=== PATIENT | male | born 1960 | race Caucasian/White ===

== ENCOUNTER 2023-04-11 13:34 | Inpatient (IN) | payer MEDICARE ==
[2023-04-11] VITALS (32 sets, daily range): BP systolic 121–170; BP diastolic 58–97; TEMP 96.1–101.1; O2SAT 98–100
[~2023-04-11] VITALS: Ht 177.8 cm; Wt 64.7 kg
[2023-04-11 14:03] LABS: BASO # 0.1 10^3/uL (0.0-0.2); EOS # 0.1 10^3/uL (0.0-0.5); EOS % 0.8 % (0.0-3.0); HEMOGLOBIN 13.3 g/dl (13.5-17.5); LYMPH # 2.8 10^3/uL (1.5-5.0); MEAN CORPUSCULAR HEMOGLOBIN 27.1 pg (27.0-33.0); MEAN CORPUSCULAR HGB CONC 31.7 g/dl (32.0-36.5); MEAN CORPUSCULAR VOLUME 85.5 fl (80.0-96.0); MONO # 0.5 10^3/uL (0.0-0.8); MONO % 8.1 % (2.0-8.0); NEUTROPHILS # 2.7 10^3/uL (1.5-8.5); PLATELET COUNT, AUTOMATED 268 10^3/uL (150-450); RED BLOOD COUNT 4.91 10^6/uL (4.30-6.10); WHITE BLOOD COUNT 6.2 10^3/uL (4.0-10.0)
[2023-04-11] MEDS ORDERED: NS 1,000 ML IV ONE (14:05)
[2023-04-11 14:19] LABS: INR 1.11; PROTHROMBIN TIME 14.5 SECONDS (12.5-14.5)
[2023-04-11 14:20] LABS: ABG BASE EXCESS -6.8 (-2.0-2.0); ABG PARTIAL PRESSURE CO2 34.2 mmHg (35.0-45.0); ABG PARTIAL PRESSURE O2 73.6 mmHg (75.0-100.0); ABG STANDARD HCO3 18.9 MMOL/L. (22.0-26.0); ABG TOTAL CO2 19.1 MMOL/L (23.0-31.0); PARTIAL THROMBOPLASTIN TIME 26.9 SECONDS (24.8-34.2)
[2023-04-11 14:24] LABS: ETHYL ALCOHOL (ETHANOL) < 0.003 % (0.000-0.010)
[2023-04-11 14:25] LABS: CK-MB VALUE MASS 19.1 NG/ML (<3.6)
[2023-04-11 14:26] LABS: ACETAMINOPHEN LEVEL < 2.0 UG/ML (10.0-20.0); SALICYLATE LEVEL < 3.0 MG/DL (<30)
[2023-04-11 14:28] LABS: ALBUMIN 3.5 G/DL (3.2-5.2); ALKALINE PHOSPHATASE 106 U/L (46-116); ALT/SGPT 110 U/L (7.0-40); AST/SGOT 92 U/L (<34); BILIRUBIN,DIRECT 0.2 MG/DL (<0.4); BILIRUBIN,TOTAL 0.4 MG/DL (0.3-1.2); BLOOD UREA NITROGEN 34 MG/DL (9-23); CALCIUM LEVEL 8.9 MG/DL (8.3-10.6); CARBON DIOXIDE LEVEL 19 MMOL/L (20-31); CHLORIDE LEVEL 103 MMOL/L (98-107); CPK CREATINE PHOSPHOKINASE 440 U/L (46-171); CREATININE FOR GFR 1.19 MG/DL (0.70-1.30); GLOMERULAR FILTRATION RATE > 60.0 (>49); GLUCOSE, FASTING 205 MG/DL (74-106); MB/CK RELATIVE INDEX 4.34 (< OR =4); POTASSIUM SERUM 4.5 MMOL/L (3.5-5.1); SODIUM LEVEL 139 MMOL/L (136-145)
[2023-04-11 14:29] LABS: THYROID STIMULATING HORMONE 8.936 uIU/ML (0.55-4.78)
[2023-04-11 14:30] LABS: FREE T4 0.84 NG/DL (0.89-1.76)
[2023-04-11] MEDS ORDERED: NS 500 ML IV ONE (14:40)
[2023-04-11 14:48] LABS: RSV AMPLIFICATION NEGATIVE (NEGATIVE)
[2023-04-11] MEDS ORDERED: propofoL 1,000 MG in IV 1 EA IV SCH (14:50)
[2023-04-11 14:59] LABS: LIPASE 31 U/L (12-53)
[2023-04-11 15:01] LABS: AMYLASE 76 U/L (30-118)
[2023-04-11 15:13] LABS: MAGNESIUM LEVEL 1.8 MG/DL (1.8-2.4); PHOSPHORUS LEVEL 7.4 MG/DL (2.4-5.1)
[2023-04-11 15:15] LABS: BARBITURATES URINE NEGATIVE (NEGATIVE); BENZODIAZEPINES URINE NEGATIVE (NEGATIVE); COCAINE METABOLITE URINE NEGATIVE (NEGATIVE); METHADONE URINE NEGATIVE (NEGATIVE); OPIATES URINE NEGATIVE (NEGATIVE); PHENCYCLIDINE URINE NEGATIVE (NEGATIVE)
[2023-04-11] MEDS ORDERED: ISOVUE-370 76% 100ML VIAL As Ordered ONE (15:16)
[2023-04-11 15:18] LABS: D-DIMER QUANT 3446.91 ng/ml (<500)
[2023-04-11 15:21] LABS: AMPHETAMINES LEVEL URINE POSITIVE (NEGATIVE); CANNABINOIDS URINE POSITIVE (NEGATIVE)
[2023-04-11] MEDS ORDERED: ACETAMINOPHEN 650MG SUPP PR PRN (15:30)
[2023-04-11] MEDS ORDERED: LACRILUBE (AKWA TEARS) OPHTH OINT 3.5GM OU PRN (15:30)
[2023-04-11] MEDS ORDERED: NS 250 ML IV ONE (15:50)
[2023-04-11] MEDS ORDERED: ACETAMINOPHEN 650MG SUPP PR ONE (16:00)
[2023-04-11] MEDS ORDERED: MED REC IN PROGRESS XX SCH (16:20)
[2023-04-11] MEDS ORDERED: MED REC CURRENTLY UNOBTAINABLE XX SCH (16:30)
[2023-04-11 16:42] LABS: ABG BASE EXCESS -3.4 (-2.0-2.0); ABG O2 SATURATION 98.8 % (95.0-99.0); ABG PARTIAL PRESSURE CO2 36.4 mmHg (35.0-45.0); ABG PARTIAL PRESSURE O2 144.9 mmHg (75.0-100.0); ABG STANDARD HCO3 21.7 MMOL/L. (22.0-26.0); ABG TOTAL CO2 22.2 MMOL/L (23.0-31.0)
[2023-04-11] MEDS ORDERED: CISATRACURIUM 10MG/ML 20 ML VIAL IV ONE (16:45)
[2023-04-11 16:54] LABS: BASO % 0.3 % (0.0-1.0); EOS % 0.2 % (0.0-3.0); HEMATOCRIT 43.2 % (42.0-52.0); HEMOGLOBIN 14.7 g/dl (13.5-17.5); LYMPH % 9.2 % (24.0-44.0); MEAN CORPUSCULAR HEMOGLOBIN 28.1 pg (27.0-33.0); MEAN CORPUSCULAR VOLUME 82.6 fl (80.0-96.0); MONO # 0.9 10^3/uL (0.0-0.8); MONO % 8.5 % (2.0-8.0); NEUTROPHILS # 8.9 10^3/uL (1.5-8.5); PLATELET COUNT, AUTOMATED 249 10^3/uL (150-450); RED BLOOD COUNT 5.23 10^6/uL (4.30-6.10)
[2023-04-11] MEDS: IPRATROPIUM 0.5MG/ALBUTEROL 2.5MG INH SOL UD 3ML (DUONEB) NEB SCH ×2 (16:54→19:21)
[2023-04-11 17:13] LABS: INR 1.07; PARTIAL THROMBOPLASTIN TIME 26.3 SECONDS (24.8-34.2); PROTHROMBIN TIME 14.1 SECONDS (12.5-14.5)
[2023-04-11 17:20] LABS: LIPASE 26 U/L (12-53)
[2023-04-11 17:21] LABS: AMYLASE 171 U/L (30-118)
[2023-04-11 17:27] LABS: ALBUMIN 4.1 G/DL (3.2-5.2); ALKALINE PHOSPHATASE 119 U/L (46-116); ALT/SGPT 133 U/L (7.0-40); AST/SGOT 123 U/L (<34); BILIRUBIN,TOTAL 0.6 MG/DL (0.3-1.2); BLOOD UREA NITROGEN 35 MG/DL (9-23); CALCIUM LEVEL 8.9 MG/DL (8.3-10.6); CARBON DIOXIDE LEVEL 26 MMOL/L (20-31); CHLORIDE LEVEL 104 MMOL/L (98-107); CPK CREATINE PHOSPHOKINASE 878 U/L (46-171); CREATININE FOR GFR 1.15 MG/DL (0.70-1.30); GLOMERULAR FILTRATION RATE > 60.0 (>49); GLUCOSE, FASTING 77 MG/DL (74-106); MAGNESIUM LEVEL 1.7 MG/DL (1.8-2.4); MB/CK RELATIVE INDEX 2.84 (< OR =4); POTASSIUM SERUM 4.5 MMOL/L (3.5-5.1); SODIUM LEVEL 138 MMOL/L (136-145)
[2023-04-11 17:34] LABS: D-DIMER QUANT > 4000 ng/ml (<500)
[2023-04-11] MEDS ORDERED: MAG SULF 1GM/100ML (MAG RUN) 1 GM in IV 1 EA IV ONE (17:40)
[2023-04-11] MEDS: CISATRACURIUM 200 MG in NS 480 ML IV SCH (18:02)
[2023-04-11] MEDS: LACRILUBE (AKWA TEARS) OPHTH OINT 3.5GM OU SCH ×2 (18:43→21:37)
[2023-04-11] MEDS: propofoL 1,000 MG in IV 1 EA IV SCH (19:31)
[2023-04-11 20:05] LABS: HEMOGLOBIN 13.1 g/dl (13.5-17.5); MEAN CORPUSCULAR HEMOGLOBIN 27.8 pg (27.0-33.0); MEAN CORPUSCULAR HGB CONC 33.6 g/dl (32.0-36.5); MEAN CORPUSCULAR VOLUME 82.8 fl (80.0-96.0); PLATELET COUNT, AUTOMATED 218 10^3/uL (150-450); RED BLOOD COUNT 4.71 10^6/uL (4.30-6.10); WHITE BLOOD COUNT 10.5 10^3/uL (4.0-10.0)
[2023-04-11 20:18] LABS: INR 1.08; PROTHROMBIN TIME 14.2 SECONDS (12.5-14.5)
[2023-04-11 20:22] LABS: ABG BASE EXCESS -2.7 (-2.0-2.0); ABG HCO3 21.6 MMOL/L (22.0-26.0); ABG O2 SATURATION 98.7 % (95.0-99.0); ABG PARTIAL PRESSURE CO2 36.1 mmHg (35.0-45.0); ABG PARTIAL PRESSURE O2 129.8 mmHg (75.0-100.0); ABG STANDARD HCO3 22.2 MMOL/L. (22.0-26.0); ABG TOTAL CO2 22.7 MMOL/L (23.0-31.0); ABG pH (ARTERIAL) 7.394 UNITS (7.350-7.450)
[2023-04-11] MEDS: CHLORHEXIDINE GLUCONATE 0.12 % 15ML UDC (PERIDEX ORAL RINSE) MT SCH (21:29)
[2023-04-11 21:37] LABS: ALBUMIN 3.5 G/DL (3.2-5.2); ALKALINE PHOSPHATASE 96 U/L (46-116); ALT/SGPT 105 U/L (7.0-40); AST/SGOT 100 U/L (<34); BILIRUBIN,TOTAL 0.5 MG/DL (0.3-1.2); BLOOD UREA NITROGEN 34 MG/DL (9-23); CALCIUM LEVEL 8.2 MG/DL (8.3-10.6); CARBON DIOXIDE LEVEL 24 MMOL/L (20-31); CHLORIDE LEVEL 105 MMOL/L (98-107); GLOMERULAR FILTRATION RATE > 60.0 (>49); GLUCOSE, FASTING 99 MG/DL (74-106); PHOSPHORUS LEVEL 3.4 MG/DL (2.4-5.1); POTASSIUM SERUM 3.6 MMOL/L (3.5-5.1); SODIUM LEVEL 139 MMOL/L (136-145); TOTAL PROTEIN 6.7 G/DL (5.7-8.2)
[2023-04-12] VITALS (31 sets, daily range): BP systolic 109–178; BP diastolic 72–99; TEMP 96.6–98.4; O2SAT 91–100
[2023-04-12 00:02] LABS: ABG BASE EXCESS 1.5 (-2.0-2.0); ABG HCO3 24.7 MMOL/L (22.0-26.0); ABG O2 SATURATION 98.6 % (95.0-99.0); ABG PARTIAL PRESSURE O2 115.8 mmHg (75.0-100.0); ABG STANDARD HCO3 25.8 MMOL/L. (22.0-26.0); ABG TOTAL CO2 25.8 MMOL/L (23.0-31.0); ABG pH (ARTERIAL) 7.467 UNITS (7.350-7.450)
[2023-04-12 00:10] LABS: INR 1.08; PARTIAL THROMBOPLASTIN TIME 29.8 SECONDS (24.8-34.2); PROTHROMBIN TIME 14.2 SECONDS (12.5-14.5)
[2023-04-12 00:32] LABS: HEMOGLOBIN 13.6 g/dl (13.5-17.5); MEAN CORPUSCULAR HEMOGLOBIN 27.8 pg (27.0-33.0); MEAN CORPUSCULAR VOLUME 81.6 fl (80.0-96.0); PLATELET COUNT, AUTOMATED 206 10^3/uL (150-450); WHITE BLOOD COUNT 9.7 10^3/uL (4.0-10.0)
[2023-04-12] MEDS: propofoL 1,000 MG in IV 1 EA IV SCH ×4 (00:33→22:50)
[2023-04-12 00:56] LABS: ALKALINE PHOSPHATASE 96 U/L (46-116); ALT/SGPT 100 U/L (7.0-40); AST/SGOT 87 U/L (<34); BLOOD UREA NITROGEN 30 MG/DL (9-23); CALCIUM LEVEL 8.1 MG/DL (8.3-10.6); CARBON DIOXIDE LEVEL 25 MMOL/L (20-31); CHLORIDE LEVEL 104 MMOL/L (98-107); CREATININE FOR GFR 0.93 MG/DL (0.70-1.30); GLOMERULAR FILTRATION RATE > 60.0 (>49); GLUCOSE, FASTING 100 MG/DL (74-106); PHOSPHORUS LEVEL 4.5 MG/DL (2.4-5.1); POTASSIUM SERUM 3.4 MMOL/L (3.5-5.1); SODIUM LEVEL 140 MMOL/L (136-145)
[2023-04-12 00:57] LABS: ALBUMIN 3.4 G/DL (3.2-5.2); BILIRUBIN,TOTAL 0.5 MG/DL (0.3-1.2); MAGNESIUM LEVEL 1.9 MG/DL (1.8-2.4); TOTAL PROTEIN 6.8 G/DL (5.7-8.2)
[2023-04-12 04:08] LABS: ABG BASE EXCESS 6.7 (-2.0-2.0); ABG HCO3 29.9 MMOL/L (22.0-26.0); ABG O2 SATURATION 91.6 % (95.0-99.0); ABG PARTIAL PRESSURE CO2 37.5 mmHg (35.0-45.0); ABG PARTIAL PRESSURE O2 55.5 mmHg (75.0-100.0); ABG STANDARD HCO3 30.4 MMOL/L. (22.0-26.0); ABG pH (ARTERIAL) 7.519 UNITS (7.350-7.450)
[2023-04-12 04:24] LABS: HEMATOCRIT 42.9 % (42.0-52.0); HEMOGLOBIN 14.4 g/dl (13.5-17.5); MEAN CORPUSCULAR HEMOGLOBIN 27.2 pg (27.0-33.0); MEAN CORPUSCULAR HGB CONC 33.6 g/dl (32.0-36.5); MEAN CORPUSCULAR VOLUME 81.1 fl (80.0-96.0); PLATELET COUNT, AUTOMATED 223 10^3/uL (150-450); RED BLOOD COUNT 5.29 10^6/uL (4.30-6.10); WHITE BLOOD COUNT 7.9 10^3/uL (4.0-10.0)
[2023-04-12 04:40] LABS: INR 1.04; PARTIAL THROMBOPLASTIN TIME 30.3 SECONDS (24.8-34.2); PROTHROMBIN TIME 13.8 SECONDS (12.5-14.5)
[2023-04-12 04:46] LABS: ALBUMIN 3.5 G/DL (3.2-5.2); ALKALINE PHOSPHATASE 100 U/L (46-116); ALT/SGPT 99 U/L (7.0-40); AST/SGOT 77 U/L (<34); BILIRUBIN,TOTAL 0.6 MG/DL (0.3-1.2); BLOOD UREA NITROGEN 30 MG/DL (9-23); CALCIUM LEVEL 8.8 MG/DL (8.3-10.6); CARBON DIOXIDE LEVEL 30 MMOL/L (20-31); CHLORIDE LEVEL 101 MMOL/L (98-107); CREATININE FOR GFR 0.94 MG/DL (0.70-1.30); GLOMERULAR FILTRATION RATE > 60.0 (>49); GLUCOSE, FASTING 97 MG/DL (74-106); PHOSPHORUS LEVEL 4.2 MG/DL (2.4-5.1); POTASSIUM SERUM 3.2 MMOL/L (3.5-5.1); SODIUM LEVEL 140 MMOL/L (136-145)
[2023-04-12] MEDS: CISATRACURIUM 200 MG in NS 480 ML IV SCH ×2 (05:10→17:36)
[2023-04-12] MEDS: KCL 20MEQ IN 100ML SWI (KRUN) 20 MEQ in IV 1 EA IV SCH ×8 (05:18→15:24)
[2023-04-12 06:01] LABS: ABG BASE EXCESS 7.4 (-2.0-2.0); ABG HCO3 31.8 MMOL/L (22.0-26.0); ABG O2 SATURATION 96.6 % (95.0-99.0); ABG PARTIAL PRESSURE CO2 43.5 mmHg (35.0-45.0); ABG PARTIAL PRESSURE O2 86.4 mmHg (75.0-100.0); ABG STANDARD HCO3 31.2 MMOL/L. (22.0-26.0); ABG TOTAL CO2 33.2 MMOL/L (23.0-31.0); ABG pH (ARTERIAL) 7.482 UNITS (7.350-7.450)
[2023-04-12 08:15] LABS: HEMATOCRIT 43.1 % (42.0-52.0); HEMOGLOBIN 14.6 g/dl (13.5-17.5); MEAN CORPUSCULAR HEMOGLOBIN 27.7 pg (27.0-33.0); MEAN CORPUSCULAR HGB CONC 33.9 g/dl (32.0-36.5); MEAN CORPUSCULAR VOLUME 81.6 fl (80.0-96.0); PLATELET COUNT, AUTOMATED 249 10^3/uL (150-450); RED BLOOD COUNT 5.28 10^6/uL (4.30-6.10); WHITE BLOOD COUNT 9.2 10^3/uL (4.0-10.0)
[2023-04-12] MEDS: IPRATROPIUM 0.5MG/ALBUTEROL 2.5MG INH SOL UD 3ML (DUONEB) NEB SCH ×4 (08:15→19:38)
[2023-04-12] MEDS ORDERED: LR 1,000 ML IV ONE ×2 (08:30→12:50)
[2023-04-12 08:35] LABS: ALBUMIN 3.7 G/DL (3.2-5.2); ALKALINE PHOSPHATASE 95 U/L (46-116); ALT/SGPT 87 U/L (7.0-40); AST/SGOT 63 U/L (<34); BILIRUBIN,TOTAL 0.6 MG/DL (0.3-1.2); BLOOD UREA NITROGEN 26 MG/DL (9-23); CALCIUM LEVEL 8.5 MG/DL (8.3-10.6); CARBON DIOXIDE LEVEL 35 MMOL/L (20-31); CHLORIDE LEVEL 100 MMOL/L (98-107); CREATININE FOR GFR 0.86 MG/DL (0.70-1.30); GLOMERULAR FILTRATION RATE > 60.0 (>49); GLUCOSE, FASTING 88 MG/DL (74-106); PHOSPHORUS LEVEL 4.4 MG/DL (2.4-5.1); POTASSIUM SERUM 3.6 MMOL/L (3.5-5.1); SODIUM LEVEL 139 MMOL/L (136-145); TOTAL PROTEIN 7.2 G/DL (5.7-8.2)
[2023-04-12 09:02] LABS: INR 1.05; PROTHROMBIN TIME 13.9 SECONDS (12.5-14.5)
[2023-04-12 09:03] LABS: PARTIAL THROMBOPLASTIN TIME 28.4 SECONDS (24.8-34.2)
[2023-04-12 09:10] LABS: ABG BASE EXCESS 8.4 (-2.0-2.0); ABG HCO3 34.9 MMOL/L (22.0-26.0); ABG O2 SATURATION 93.8 % (95.0-99.0); ABG PARTIAL PRESSURE CO2 55.1 mmHg (35.0-45.0); ABG PARTIAL PRESSURE O2 69.1 mmHg (75.0-100.0); ABG STANDARD HCO3 32.1 MMOL/L. (22.0-26.0); ABG TOTAL CO2 36.6 MMOL/L (23.0-31.0)
[2023-04-12] MEDS: CHLORHEXIDINE GLUCONATE 0.12 % 15ML UDC (PERIDEX ORAL RINSE) MT SCH ×2 (09:17→20:33)
[2023-04-12] MEDS: ENOXAPARIN 40MG/0.4ML SYRINGE (J1650 PER 10MG) SC SCH (09:18)
[2023-04-12] MEDS: PANTOPRAZOLE 40MG VIAL IV SCH (09:18)
[2023-04-12] MEDS: LACRILUBE (AKWA TEARS) OPHTH OINT 3.5GM OU SCH ×3 (09:18→20:33)
[2023-04-12] MEDS: LR 1,000 ML IV SCH ×2 (11:47→14:48)
[2023-04-12] MEDS: fentaNYL 100 MCG/2 ML INJECTION IV PRN (11:47)
[2023-04-12 12:01] LABS: ABG BASE EXCESS 6.9 (-2.0-2.0); ABG HCO3 33.4 MMOL/L (22.0-26.0); ABG O2 SATURATION 94.4 % (95.0-99.0); ABG PARTIAL PRESSURE CO2 55.1 mmHg (35.0-45.0); ABG PARTIAL PRESSURE O2 72.7 mmHg (75.0-100.0); ABG STANDARD HCO3 30.7 MMOL/L. (22.0-26.0); ABG TOTAL CO2 35.1 MMOL/L (23.0-31.0); ABG pH (ARTERIAL) 7.401 UNITS (7.350-7.450)
[2023-04-12 12:19] LABS: HEMATOCRIT 39.9 % (42.0-52.0); HEMOGLOBIN 13.4 g/dl (13.5-17.5); MEAN CORPUSCULAR HEMOGLOBIN 27.7 pg (27.0-33.0); MEAN CORPUSCULAR HGB CONC 33.6 g/dl (32.0-36.5); MEAN CORPUSCULAR VOLUME 82.6 fl (80.0-96.0); PLATELET COUNT, AUTOMATED 215 10^3/uL (150-450); RED BLOOD COUNT 4.83 10^6/uL (4.30-6.10); WHITE BLOOD COUNT 9.8 10^3/uL (4.0-10.0)
[2023-04-12 12:32] LABS: INR 1.09; PROTHROMBIN TIME 14.3 SECONDS (12.5-14.5)
[2023-04-12 12:33] LABS: PARTIAL THROMBOPLASTIN TIME 32.8 SECONDS (24.8-34.2)
[2023-04-12 12:58] LABS: ALBUMIN 3.2 G/DL (3.2-5.2); ALKALINE PHOSPHATASE 87 U/L (46-116); ALT/SGPT 74 U/L (7.0-40); AST/SGOT 50 U/L (<34); BILIRUBIN,TOTAL 0.5 MG/DL (0.3-1.2); BLOOD UREA NITROGEN 24 MG/DL (9-23); CARBON DIOXIDE LEVEL 34 MMOL/L (20-31); CHLORIDE LEVEL 102 MMOL/L (98-107); CREATININE FOR GFR 0.84 MG/DL (0.70-1.30); GLOMERULAR FILTRATION RATE > 60.0 (>49); GLUCOSE, FASTING 109 MG/DL (74-106); MAGNESIUM LEVEL 1.8 MG/DL (1.8-2.4); PHOSPHORUS LEVEL 3.9 MG/DL (2.4-5.1); POTASSIUM SERUM 3.2 MMOL/L (3.5-5.1); SODIUM LEVEL 140 MMOL/L (136-145); TOTAL PROTEIN 6.4 G/DL (5.7-8.2)
[2023-04-12 15:37] LABS: HEMATOCRIT 41.4 % (42.0-52.0); HEMOGLOBIN 13.6 g/dl (13.5-17.5); MEAN CORPUSCULAR HEMOGLOBIN 27.9 pg (27.0-33.0); MEAN CORPUSCULAR HGB CONC 32.9 g/dl (32.0-36.5); MEAN CORPUSCULAR VOLUME 84.8 fl (80.0-96.0); RED BLOOD COUNT 4.88 10^6/uL (4.30-6.10); WHITE BLOOD COUNT 7.9 10^3/uL (4.0-10.0)
[2023-04-12 15:56] LABS: ABG BASE EXCESS 6.9 (-2.0-2.0); ABG HCO3 32.9 MMOL/L (22.0-26.0); ABG PARTIAL PRESSURE CO2 52.1 mmHg (35.0-45.0); ABG PARTIAL PRESSURE O2 74.6 mmHg (75.0-100.0); ABG STANDARD HCO3 30.7 MMOL/L. (22.0-26.0); ABG TOTAL CO2 34.5 MMOL/L (23.0-31.0); ABG pH (ARTERIAL) 7.418 UNITS (7.350-7.450)
[2023-04-12 16:12] LABS: ALBUMIN 3.1 G/DL (3.2-5.2); ALKALINE PHOSPHATASE 92 U/L (46-116); ALT/SGPT 77 U/L (7.0-40); AST/SGOT 47 U/L (<34); BILIRUBIN,TOTAL 0.5 MG/DL (0.3-1.2); BLOOD UREA NITROGEN 27 MG/DL (9-23); CALCIUM LEVEL 8.3 MG/DL (8.3-10.6); CARBON DIOXIDE LEVEL 34 MMOL/L (20-31); CHLORIDE LEVEL 102 MMOL/L (98-107); CREATININE FOR GFR 0.88 MG/DL (0.70-1.30); GLOMERULAR FILTRATION RATE > 60.0 (>49); GLUCOSE, FASTING 93 MG/DL (74-106); INR 1.1; MAGNESIUM LEVEL 1.8 MG/DL (1.8-2.4); PHOSPHORUS LEVEL 4.1 MG/DL (2.4-5.1); POTASSIUM SERUM 3.7 MMOL/L (3.5-5.1); PROTHROMBIN TIME 14.4 SECONDS (12.5-14.5); SODIUM LEVEL 142 MMOL/L (136-145); TOTAL PROTEIN 6.3 G/DL (5.7-8.2)
[2023-04-12 16:13] LABS: PARTIAL THROMBOPLASTIN TIME 32.3 SECONDS (24.8-34.2)
[2023-04-12] MEDS ORDERED: hydrALAZINE 20MG/ML 1ML VIAL IV PRN (18:10)
[2023-04-12 20:01] LABS: HEMOGLOBIN 13.8 g/dl (13.5-17.5); MEAN CORPUSCULAR HEMOGLOBIN 27.7 pg (27.0-33.0); MEAN CORPUSCULAR HGB CONC 33.7 g/dl (32.0-36.5); MEAN CORPUSCULAR VOLUME 82.2 fl (80.0-96.0); PLATELET COUNT, AUTOMATED 202 10^3/uL (150-450); RED BLOOD COUNT 4.99 10^6/uL (4.30-6.10); WHITE BLOOD COUNT 10.8 10^3/uL (4.0-10.0)
[2023-04-12 20:16] LABS: ABG BASE EXCESS 4.2 (-2.0-2.0); ABG HCO3 27.7 MMOL/L (22.0-26.0); ABG O2 SATURATION 96.1 % (95.0-99.0); ABG PARTIAL PRESSURE CO2 37.5 mmHg (35.0-45.0); ABG PARTIAL PRESSURE O2 77.6 mmHg (75.0-100.0); ABG STANDARD HCO3 28.2 MMOL/L. (22.0-26.0); ABG TOTAL CO2 28.8 MMOL/L (23.0-31.0); ABG pH (ARTERIAL) 7.486 UNITS (7.350-7.450)
[2023-04-12 20:17] LABS: INR 1.07; PROTHROMBIN TIME 14.1 SECONDS (12.5-14.5)
[2023-04-12 20:18] LABS: PARTIAL THROMBOPLASTIN TIME 31.5 SECONDS (24.8-34.2)
[2023-04-12 22:08] LABS: ALKALINE PHOSPHATASE 93 U/L (46-116); ALT/SGPT 71 U/L (7.0-40); AST/SGOT 44 U/L (<34); BILIRUBIN,TOTAL 0.5 MG/DL (0.3-1.2); BLOOD UREA NITROGEN 22 MG/DL (9-23); CALCIUM LEVEL 8.1 MG/DL (8.3-10.6); CARBON DIOXIDE LEVEL 30 MMOL/L (20-31); CHLORIDE LEVEL 102 MMOL/L (98-107); CREATININE FOR GFR 0.78 MG/DL (0.70-1.30); GLOMERULAR FILTRATION RATE > 60.0 (>49); GLUCOSE, FASTING 124 MG/DL (74-106); MAGNESIUM LEVEL 1.6 MG/DL (1.8-2.4); PHOSPHORUS LEVEL 2.6 MG/DL (2.4-5.1); POTASSIUM SERUM 3.9 MMOL/L (3.5-5.1); SODIUM LEVEL 139 MMOL/L (136-145); TOTAL PROTEIN 6.1 G/DL (5.7-8.2)
[2023-04-12 22:28] LABS: ALBUMIN 2.8 G/DL (3.2-5.2); ALKALINE PHOSPHATASE 89 U/L (46-116); ALT/SGPT 67 U/L (7.0-40); AST/SGOT 37 U/L (<34); BILIRUBIN,TOTAL 0.5 MG/DL (0.3-1.2); BLOOD UREA NITROGEN 22 MG/DL (9-23); CALCIUM LEVEL 8.3 MG/DL (8.3-10.6); CARBON DIOXIDE LEVEL 29 MMOL/L (20-31); CHLORIDE LEVEL 101 MMOL/L (98-107); CREATININE FOR GFR 0.75 MG/DL (0.70-1.30); GLOMERULAR FILTRATION RATE > 60.0 (>49); GLUCOSE, FASTING 133 MG/DL (74-106); POTASSIUM SERUM 3.7 MMOL/L (3.5-5.1); SODIUM LEVEL 137 MMOL/L (136-145); TOTAL PROTEIN 5.9 G/DL (5.7-8.2)
[2023-04-12] MEDS: MIDAZOLAM INJ 2MG/2ML VIAL IV PRN (22:49)
[2023-04-13] VITALS (29 sets, daily range): BP systolic 98–147; BP diastolic 62–91; TEMP 98.1–101.5; O2SAT 92–100
[2023-04-13] MEDS: fentaNYL 100 MCG/2 ML INJECTION IV PRN (00:08)
[2023-04-13] MEDS: LR 1,000 ML IV SCH ×3 (00:15→05:42)
[2023-04-13 00:32] LABS: ALBUMIN 2.7 G/DL (3.2-5.2); ALKALINE PHOSPHATASE 87 U/L (46-116); ALT/SGPT 64 U/L (7.0-40); AST/SGOT 35 U/L (<34); BILIRUBIN,TOTAL 0.5 MG/DL (0.3-1.2); BLOOD UREA NITROGEN 22 MG/DL (9-23); CALCIUM LEVEL 8.3 MG/DL (8.3-10.6); CARBON DIOXIDE LEVEL 30 MMOL/L (20-31); CHLORIDE LEVEL 101 MMOL/L (98-107); CREATININE FOR GFR 0.76 MG/DL (0.70-1.30); GLOMERULAR FILTRATION RATE > 60.0 (>49); GLUCOSE, FASTING 114 MG/DL (74-106); MAGNESIUM LEVEL 1.5 MG/DL (1.8-2.4); PHOSPHORUS LEVEL 2.9 MG/DL (2.4-5.1); POTASSIUM SERUM 4.4 MMOL/L (3.5-5.1); SODIUM LEVEL 136 MMOL/L (136-145); TOTAL PROTEIN 5.8 G/DL (5.7-8.2)
[2023-04-13 00:43] LABS: HEMATOCRIT 39.9 % (42.0-52.0); HEMOGLOBIN 13.3 g/dl (13.5-17.5); MEAN CORPUSCULAR HEMOGLOBIN 27.7 pg (27.0-33.0); MEAN CORPUSCULAR HGB CONC 33.3 g/dl (32.0-36.5); PLATELET COUNT, AUTOMATED 193 10^3/uL (150-450); RED BLOOD COUNT 4.81 10^6/uL (4.30-6.10); WHITE BLOOD COUNT 14.3 10^3/uL (4.0-10.0)
[2023-04-13 03:48] LABS: HEMATOCRIT 38.6 % (42.0-52.0); HEMOGLOBIN 12.9 g/dl (13.5-17.5); MEAN CORPUSCULAR HEMOGLOBIN 27.5 pg (27.0-33.0); MEAN CORPUSCULAR HGB CONC 33.4 g/dl (32.0-36.5); MEAN CORPUSCULAR VOLUME 82.3 fl (80.0-96.0); PLATELET COUNT, AUTOMATED 217 10^3/uL (150-450); RED BLOOD COUNT 4.69 10^6/uL (4.30-6.10); WHITE BLOOD COUNT 14.9 10^3/uL (4.0-10.0)
[2023-04-13] MEDS: propofoL 1,000 MG in IV 1 EA IV SCH ×6 (04:05→22:15)
[2023-04-13] MEDS: MIDAZOLAM INJ 2MG/2ML VIAL IV PRN ×7 (04:11→21:40)
[2023-04-13 04:16] LABS: ALBUMIN 2.7 G/DL (3.2-5.2); ALKALINE PHOSPHATASE 88 U/L (46-116); ALT/SGPT 60 U/L (7.0-40); AST/SGOT 38 U/L (<34); BILIRUBIN,TOTAL 0.5 MG/DL (0.3-1.2); BLOOD UREA NITROGEN 20 MG/DL (9-23); CALCIUM LEVEL 7.9 MG/DL (8.3-10.6); CARBON DIOXIDE LEVEL 30 MMOL/L (20-31); CHLORIDE LEVEL 101 MMOL/L (98-107); CREATININE FOR GFR 0.72 MG/DL (0.70-1.30); GLOMERULAR FILTRATION RATE > 60.0 (>49); GLUCOSE, FASTING 94 MG/DL (74-106); MAGNESIUM LEVEL 1.4 MG/DL (1.8-2.4); PHOSPHORUS LEVEL 2.4 MG/DL (2.4-5.1); SODIUM LEVEL 138 MMOL/L (136-145); TOTAL PROTEIN 5.8 G/DL (5.7-8.2)
[2023-04-13 05:28] LABS: ABG BASE EXCESS 3.9 (-2.0-2.0); ABG HCO3 28.6 MMOL/L (22.0-26.0); ABG O2 SATURATION 96.2 % (95.0-99.0); ABG PARTIAL PRESSURE CO2 43.1 mmHg (35.0-45.0); ABG PARTIAL PRESSURE O2 81.5 mmHg (75.0-100.0); ABG STANDARD HCO3 27.9 MMOL/L. (22.0-26.0); ABG TOTAL CO2 29.9 MMOL/L (23.0-31.0); ABG pH (ARTERIAL) 7.439 UNITS (7.350-7.450)
[2023-04-13] MEDS: D5W/LR 1,000 ML IV SCH ×4 (05:53→22:15)
[2023-04-13] MEDS: MAG SULF 1GM/100ML (MAG RUN) 1 GM in IV 1 EA IV SCH ×3 (05:53→08:22)
[2023-04-13] MEDS: INSULIN LISPRO (NovoLOG) PER UNIT SC SCH ×4 (06:00→18:00)
[2023-04-13] MEDS: IPRATROPIUM 0.5MG/ALBUTEROL 2.5MG INH SOL UD 3ML (DUONEB) NEB SCH ×4 (07:34→20:04)
[2023-04-13] MEDS: CHLORHEXIDINE GLUCONATE 0.12 % 15ML UDC (PERIDEX ORAL RINSE) MT SCH ×2 (08:23→20:20)
[2023-04-13] MEDS: LACRILUBE (AKWA TEARS) OPHTH OINT 3.5GM OU SCH ×3 (08:23→20:20)
[2023-04-13] MEDS: PANTOPRAZOLE 40MG VIAL IV SCH (08:23)
[2023-04-13] MEDS: ENOXAPARIN 40MG/0.4ML SYRINGE (J1650 PER 10MG) SC SCH (08:23)
[2023-04-13 08:54] LABS: HEMATOCRIT 36.1 % (42.0-52.0); HEMOGLOBIN 12.1 g/dl (13.5-17.5); MEAN CORPUSCULAR HEMOGLOBIN 27.6 pg (27.0-33.0); MEAN CORPUSCULAR HGB CONC 33.5 g/dl (32.0-36.5); MEAN CORPUSCULAR VOLUME 82.2 fl (80.0-96.0); PLATELET COUNT, AUTOMATED 183 10^3/uL (150-450); RED BLOOD COUNT 4.39 10^6/uL (4.30-6.10)
[2023-04-13 09:11] LABS: ALBUMIN 2.6 G/DL (3.2-5.2); ALKALINE PHOSPHATASE 81 U/L (46-116); ALT/SGPT 49 U/L (7.0-40); AST/SGOT 42 U/L (<34); BILIRUBIN,TOTAL 0.4 MG/DL (0.3-1.2); BLOOD UREA NITROGEN 15 MG/DL (9-23); CALCIUM LEVEL 7.8 MG/DL (8.3-10.6); CARBON DIOXIDE LEVEL 31 MMOL/L (20-31); CHLORIDE LEVEL 100 MMOL/L (98-107); CREATININE FOR GFR 0.69 MG/DL (0.70-1.30); GLOMERULAR FILTRATION RATE > 60.0 (>49); GLUCOSE, FASTING 135 MG/DL (74-106); MAGNESIUM LEVEL 1.9 MG/DL (1.8-2.4); PHOSPHORUS LEVEL 1.9 MG/DL (2.4-5.1); POTASSIUM SERUM 3.4 MMOL/L (3.5-5.1); SODIUM LEVEL 136 MMOL/L (136-145); TOTAL PROTEIN 5.6 G/DL (5.7-8.2)
[2023-04-13] MEDS ORDERED: MED REC CURRENTLY UNOBTAINABLE XX SCH (11:20)
[2023-04-13] MEDS ORDERED: KCL 20MEQ IN 100ML SWI (KRUN) 20 MEQ in IV 1 EA IV ONE ×2 (14:00)
[2023-04-13] MEDS ORDERED: LR 1,000 ML IV ONE (14:05)
[2023-04-13] MEDS ORDERED: POTASSIUM PHOSPHATE INJ 30 MMOL in D5W 500 ML IV ONE (15:00)
[2023-04-13] MEDS ORDERED: ACETAMINOPHEN *IV* 1,000 MG in IV 1 EA IV ONE (22:20)
[2023-04-14] VITALS (33 sets, daily range): BP systolic 95–145; BP diastolic 52–90; TEMP 98.7–101.7; O2SAT 94–100
[2023-04-14] MEDS: propofoL 1,000 MG in IV 1 EA IV SCH ×5 (01:43→20:59)
[2023-04-14] MEDS ORDERED: ASPIRIN 300 MG SUPP PR ONE (03:15)
[2023-04-14] MEDS: D5W/LR 1,000 ML IV SCH ×5 (03:19→21:45)
[2023-04-14] MEDS ORDERED: ACETAMINOPHEN 1000MG 100ML IV BAG IV ONE ×2 (04:35→13:00)
[2023-04-14 05:37] LABS: BASO % 0.2 % (0.0-1.0); EOS % 0.1 % (0.0-3.0); HEMATOCRIT 31.3 % (42.0-52.0); HEMOGLOBIN 10.6 g/dl (13.5-17.5); LYMPH # 0.9 10^3/uL (1.5-5.0); LYMPH % 9.4 % (24.0-44.0); MEAN CORPUSCULAR HEMOGLOBIN 27.8 pg (27.0-33.0); MEAN CORPUSCULAR HGB CONC 33.9 g/dl (32.0-36.5); MEAN CORPUSCULAR VOLUME 82.2 fl (80.0-96.0); MONO # 1.1 10^3/uL (0.0-0.8); MONO % 11.6 % (2.0-8.0); NEUTROPHILS # 7.4 10^3/uL (1.5-8.5); NEUTROPHILS % 78.3 % (36.0-66.0); PLATELET COUNT, AUTOMATED 181 10^3/uL (150-450); RED BLOOD COUNT 3.81 10^6/uL (4.30-6.10); WHITE BLOOD COUNT 9.4 10^3/uL (4.0-10.0)
[2023-04-14 05:55] LABS: ABG BASE EXCESS 4.8 (-2.0-2.0); ABG HCO3 28.3 MMOL/L (22.0-26.0); ABG O2 SATURATION 95.6 % (95.0-99.0); ABG PARTIAL PRESSURE CO2 37.6 mmHg (35.0-45.0); ABG PARTIAL PRESSURE O2 76.1 mmHg (75.0-100.0); ABG STANDARD HCO3 28.8 MMOL/L. (22.0-26.0); ABG TOTAL CO2 29.4 MMOL/L (23.0-31.0); ABG pH (ARTERIAL) 7.494 UNITS (7.350-7.450)
[2023-04-14] MEDS: INSULIN LISPRO (NovoLOG) PER UNIT SC SCH ×4 (06:00→18:00)
[2023-04-14 06:07] LABS: ALBUMIN 2.1 G/DL (3.2-5.2); ALKALINE PHOSPHATASE 84 U/L (46-116); ALT/SGPT 42 U/L (7.0-40); AST/SGOT 51 U/L (<34); BILIRUBIN,TOTAL 0.3 MG/DL (0.3-1.2); BLOOD UREA NITROGEN 10 MG/DL (9-23); CALCIUM LEVEL 7.5 MG/DL (8.3-10.6); CARBON DIOXIDE LEVEL 30 MMOL/L (20-31); CHLORIDE LEVEL 102 MMOL/L (98-107); CREATININE FOR GFR 0.81 MG/DL (0.70-1.30); GLOMERULAR FILTRATION RATE > 60.0 (>49); GLUCOSE, FASTING 124 MG/DL (74-106); MAGNESIUM LEVEL 1.4 MG/DL (1.8-2.4); POTASSIUM SERUM 3.8 MMOL/L (3.5-5.1); SODIUM LEVEL 138 MMOL/L (136-145); TOTAL PROTEIN 4.8 G/DL (5.7-8.2)
[2023-04-14] MEDS: IPRATROPIUM 0.5MG/ALBUTEROL 2.5MG INH SOL UD 3ML (DUONEB) NEB SCH ×4 (08:18→20:07)
[2023-04-14] MEDS: PANTOPRAZOLE 40MG VIAL IV SCH (08:44)
[2023-04-14] MEDS: ENOXAPARIN 40MG/0.4ML SYRINGE (J1650 PER 10MG) SC SCH (08:44)
[2023-04-14] MEDS: LACRILUBE (AKWA TEARS) OPHTH OINT 3.5GM OU SCH ×3 (08:44→20:05)
[2023-04-14] MEDS: CHLORHEXIDINE GLUCONATE 0.12 % 15ML UDC (PERIDEX ORAL RINSE) MT SCH ×2 (08:45→20:06)
[2023-04-14] MEDS ORDERED: MAG SULF 1GM/100ML (MAG RUN) 1 GM in IV 1 EA IV ONE (10:00)
[2023-04-14] MEDS ORDERED: dexmedeTOMIDine (4MCG/ML)200MCG/50ML BTL (PRECEDEX) As Ordered ONE (11:51)
[2023-04-14] MEDS: dexmedeTOMidine 200 MCG in IV 1 EA IV SCH ×3 (12:00→21:14)
[2023-04-14] MEDS: MIDAZOLAM INJ 2MG/2ML VIAL IV PRN ×3 (12:02→20:06)
[2023-04-14] MEDS: fentaNYL 100 MCG/2 ML INJECTION IV PRN (12:02)
[2023-04-14] MEDS: KETOROLAC 30 MG/ML 1ML VIAL IV PRN (14:23)
[2023-04-14] MEDS ORDERED: NEOSPORIN OINT 0.9 GM PKT TOP ONE (15:00)
[2023-04-15] VITALS (28 sets, daily range): BP systolic 114–155; BP diastolic 63–95; TEMP 99.5–102.5; O2SAT 95–99
[2023-04-15] MEDS ORDERED: METOPROLOL 5 MG/5 ML VIAL IV STA (00:05)
[2023-04-15] MEDS: KETOROLAC 30 MG/ML 1ML VIAL IV PRN ×2 (00:49→11:59)
[2023-04-15] MEDS: propofoL 1,000 MG in IV 1 EA IV SCH ×2 (03:32→07:23)
[2023-04-15] MEDS: MIDAZOLAM INJ 2MG/2ML VIAL IV PRN (04:19)
[2023-04-15] MEDS: D5W/LR 1,000 ML IV SCH ×5 (04:55→22:45)
[2023-04-15 05:34] LABS: BASO % 0.4 % (0.0-1.0); EOS % 0.4 % (0.0-3.0); HEMATOCRIT 32.2 % (42.0-52.0); HEMOGLOBIN 10.8 g/dl (13.5-17.5); LYMPH # 0.9 10^3/uL (1.5-5.0); MEAN CORPUSCULAR HEMOGLOBIN 27.9 pg (27.0-33.0); MEAN CORPUSCULAR HGB CONC 33.5 g/dl (32.0-36.5); MEAN CORPUSCULAR VOLUME 83.2 fl (80.0-96.0); MONO # 0.9 10^3/uL (0.0-0.8); NEUTROPHILS # 5.7 10^3/uL (1.5-8.5); NEUTROPHILS % 74.5 % (36.0-66.0); PLATELET COUNT, AUTOMATED 169 10^3/uL (150-450); RED BLOOD COUNT 3.87 10^6/uL (4.30-6.10); WHITE BLOOD COUNT 7.7 10^3/uL (4.0-10.0)
[2023-04-15 05:56] LABS: ABG BASE EXCESS 5.7 (-2.0-2.0); ABG HCO3 29.8 MMOL/L (22.0-26.0); ABG O2 SATURATION 96.4 % (95.0-99.0); ABG PARTIAL PRESSURE CO2 41.2 mmHg (35.0-45.0); ABG PARTIAL PRESSURE O2 85.9 mmHg (75.0-100.0); ABG STANDARD HCO3 29.6 MMOL/L. (22.0-26.0); ABG TOTAL CO2 31.1 MMOL/L (23.0-31.0); ABG pH (ARTERIAL) 7.477 UNITS (7.350-7.450)
[2023-04-15] MEDS: INSULIN LISPRO (NovoLOG) PER UNIT SC SCH ×4 (06:00→18:00)
[2023-04-15 06:03] LABS: ALKALINE PHOSPHATASE 138 U/L (46-116); ALT/SGPT 42 U/L (7.0-40); AST/SGOT 42 U/L (<34); BILIRUBIN,TOTAL 0.4 MG/DL (0.3-1.2); BLOOD UREA NITROGEN 12 MG/DL (9-23); CALCIUM LEVEL 7.4 MG/DL (8.3-10.6); CARBON DIOXIDE LEVEL 30 MMOL/L (20-31); CHLORIDE LEVEL 104 MMOL/L (98-107); CREATININE FOR GFR 0.86 MG/DL (0.70-1.30); GLOMERULAR FILTRATION RATE > 60.0 (>49); GLUCOSE, FASTING 91 MG/DL (74-106); MAGNESIUM LEVEL 1.6 MG/DL (1.8-2.4); SODIUM LEVEL 139 MMOL/L (136-145); TOTAL PROTEIN 5.1 G/DL (5.7-8.2)
[2023-04-15] MEDS: MAG SULF 1GM/100ML (MAG RUN) 1 GM in IV 1 EA IV SCH ×2 (06:15→07:23)
[2023-04-15] MEDS: ENOXAPARIN 40MG/0.4ML SYRINGE (J1650 PER 10MG) SC SCH (08:01)
[2023-04-15] MEDS: LACRILUBE (AKWA TEARS) OPHTH OINT 3.5GM OU SCH ×2 (08:01→16:00)
[2023-04-15] MEDS: PANTOPRAZOLE 40MG VIAL IV SCH (08:01)
[2023-04-15] MEDS: CHLORHEXIDINE GLUCONATE 0.12 % 15ML UDC (PERIDEX ORAL RINSE) MT SCH ×2 (08:01→21:00)
[2023-04-15] MEDS: IPRATROPIUM 0.5MG/ALBUTEROL 2.5MG INH SOL UD 3ML (DUONEB) NEB SCH ×4 (08:33→19:07)
[2023-04-15 18:01] LABS: BASO % 0.3 % (0.0-1.0); EOS % 0.3 % (0.0-3.0); HEMATOCRIT 29.2 % (42.0-52.0); HEMOGLOBIN 9.6 g/dl (13.5-17.5); LYMPH % 13.1 % (24.0-44.0); MEAN CORPUSCULAR HEMOGLOBIN 27.6 pg (27.0-33.0); MEAN CORPUSCULAR HGB CONC 32.9 g/dl (32.0-36.5); MEAN CORPUSCULAR VOLUME 83.9 fl (80.0-96.0); MONO % 12.2 % (2.0-8.0); NEUTROPHILS # 5.7 10^3/uL (1.5-8.5); NEUTROPHILS % 73.3 % (36.0-66.0); PLATELET COUNT, AUTOMATED 175 10^3/uL (150-450); RED BLOOD COUNT 3.48 10^6/uL (4.30-6.10); WHITE BLOOD COUNT 7.8 10^3/uL (4.0-10.0)
[2023-04-15] MEDS: dexmedeTOMidine 200 MCG in IV 1 EA IV SCH ×2 (18:39→23:43)
[2023-04-16] VITALS (17 sets, daily range): BP systolic 115–169; BP diastolic 69–105; TEMP 98.2–99.9; O2SAT 96–98
[2023-04-16] MEDS: D5W/LR 1,000 ML IV SCH ×4 (04:26→17:55)
[2023-04-16] MEDS: dexmedeTOMidine 200 MCG in IV 1 EA IV SCH (04:29)
[2023-04-16 05:32] LABS: ALBUMIN 2.2 G/DL (3.2-5.2); ALKALINE PHOSPHATASE 129 U/L (46-116); ALT/SGPT 40 U/L (7.0-40); AST/SGOT 44 U/L (<34); BILIRUBIN,TOTAL 0.7 MG/DL (0.3-1.2); BLOOD UREA NITROGEN 15 MG/DL (9-23); CALCIUM LEVEL 7.7 MG/DL (8.3-10.6); CARBON DIOXIDE LEVEL 28 MMOL/L (20-31); CHLORIDE LEVEL 102 MMOL/L (98-107); CREATININE FOR GFR 0.73 MG/DL (0.70-1.30); GLOMERULAR FILTRATION RATE > 60.0 (>49); GLUCOSE, FASTING 95 MG/DL (74-106); POTASSIUM SERUM 3.8 MMOL/L (3.5-5.1); SODIUM LEVEL 137 MMOL/L (136-145); TOTAL PROTEIN 5.2 G/DL (5.7-8.2)
[2023-04-16] MEDS: INSULIN LISPRO (NovoLOG) PER UNIT SC SCH ×3 (06:00→12:00)
[2023-04-16] MEDS: IPRATROPIUM 0.5MG/ALBUTEROL 2.5MG INH SOL UD 3ML (DUONEB) NEB SCH ×4 (07:19→21:01)
[2023-04-16] MEDS: PANTOPRAZOLE 40MG VIAL IV SCH (08:08)
[2023-04-16] MEDS: ENOXAPARIN 40MG/0.4ML SYRINGE (J1650 PER 10MG) SC SCH (08:09)
[2023-04-16] MEDS ORDERED: VARIBAR NECTAR 40% w/v 240ML SUSP BTL As Ordered ONE (10:58)
[2023-04-16] MEDS ORDERED: VARIBAR PUDDING 40% w/v 230ML TUBE As Ordered ONE (10:58)
[2023-04-16] MEDS ORDERED: BARIUM SULFATE 700 MG TABLET (E-Z-DISK) As Ordered ONE (10:59)
[2023-04-16] MEDS ORDERED: E-Z-PAQUE 96% w/w SUSP 176GM BTL As Ordered ONE (10:59)
[2023-04-16] MEDS ORDERED: hydrALAZINE 20MG/ML 1ML VIAL IV PRN (11:05)
[2023-04-16] MEDS ORDERED: amLODIPine 5 MG TAB PO SCH (14:25)
[2023-04-16] MEDS: LEVOTHYROXINE 25MCG TABLET (0.025MG) PO SCH (15:05)
[2023-04-16] MEDS ORDERED: **hydrALAZINE HCL** 25 MG TAB PO PRN (15:10)
[2023-04-16 15:51] LABS: FERRITIN 339.8 NG/ML (10.5-307.3); FOLATE 10.32 NG/ML (>5.4); MAGNESIUM LEVEL 1.4 MG/DL (1.8-2.4)
[2023-04-16 15:52] LABS: PERCENT SATURATION 8.8 % (19.7-50.0)
[2023-04-16 15:59] LABS: PROCALCITONIN 0.17 ng/ml
[2023-04-16] MEDS: FOLIC ACID 1MG TAB PO SCH (16:34)
[2023-04-16] MEDS: THIAMINE 100 MG TAB PO SCH (16:34)
[2023-04-16] MEDS: MULTIVITAMINS/MINERALS THERAP 1 TAB PO SCH (16:34)
[2023-04-16] MEDS: LORazepam 2 MG/ML 1ML VIAL IV PRN (17:54)
[2023-04-16] MEDS: QUEtiapine FUMARATE 25 MG TAB PO SCH (20:13)
[2023-04-17] MEDS: LORazepam 2 MG/ML 1ML VIAL IV PRN ×2 (00:28→19:37)
[2023-04-17 02:41] VITALS: BP_SYST 160; BP_SYST 191; BP_DIAS 110; BP_DIAS 92
[2023-04-17] MEDS: MAG SULF 1GM/100ML (MAG RUN) 1 GM in IV 1 EA IV SCH ×2 (03:18→04:28)
[2023-04-17] MEDS: D5W/LR 1,000 ML IV SCH ×4 (03:19→15:49)
[2023-04-17 06:00] VITALS: BP 160/90; TEMP 97.8; O2SAT 92
[2023-04-17] MEDS: LEVOTHYROXINE 25MCG TABLET (0.025MG) PO SCH (06:03)
[2023-04-17 06:42] LABS: BASO % 0.4 % (0.0-1.0); EOS # 0.1 10^3/uL (0.0-0.5); HEMATOCRIT 36.3 % (42.0-52.0); LYMPH % 12.4 % (24.0-44.0); MEAN CORPUSCULAR HEMOGLOBIN 27.5 pg (27.0-33.0); MEAN CORPUSCULAR HGB CONC 34.2 g/dl (32.0-36.5); MEAN CORPUSCULAR VOLUME 80.5 fl (80.0-96.0); MONO # 1.2 10^3/uL (0.0-0.8); MONO % 14.8 % (2.0-8.0); NEUTROPHILS # 5.5 10^3/uL (1.5-8.5); NEUTROPHILS % 70.8 % (36.0-66.0); PLATELET COUNT, AUTOMATED 263 10^3/uL (150-450); RED BLOOD COUNT 4.51 10^6/uL (4.30-6.10); WHITE BLOOD COUNT 7.8 10^3/uL (4.0-10.0)
[2023-04-17 06:47] LABS: HEMOGLOBIN 12.4 g/dl (13.5-17.5)
[2023-04-17 07:05] LABS: ALBUMIN 2.9 G/DL (3.2-5.2); ALKALINE PHOSPHATASE 127 U/L (46-116); ALT/SGPT 44 U/L (7.0-40); AST/SGOT 48 U/L (<34); BILIRUBIN,TOTAL 0.7 MG/DL (0.3-1.2); BLOOD UREA NITROGEN 11 MG/DL (9-23); CALCIUM LEVEL 8.8 MG/DL (8.3-10.6); CARBON DIOXIDE LEVEL 30 MMOL/L (20-31); CHLORIDE LEVEL 96 MMOL/L (98-107); CREATININE FOR GFR 0.64 MG/DL (0.70-1.30); GLOMERULAR FILTRATION RATE > 60.0 (>49); GLUCOSE, FASTING 91 MG/DL (74-106); POTASSIUM SERUM 3.4 MMOL/L (3.5-5.1); SODIUM LEVEL 135 MMOL/L (136-145); TOTAL PROTEIN 6.9 G/DL (5.7-8.2)
[2023-04-17] MEDS: IPRATROPIUM 0.5MG/ALBUTEROL 2.5MG INH SOL UD 3ML (DUONEB) NEB SCH ×4 (08:37→20:23)
[2023-04-17] MEDS: KCL 10MEQ/100ML SWI (KRUN) 10 MEQ in IV 1 EA IV SCH ×2 (10:02→11:47)
[2023-04-17] MEDS: THIAMINE 100 MG TAB PO SCH ×2 (10:03→20:08)
[2023-04-17] MEDS: MULTIVITAMINS/MINERALS THERAP 1 TAB PO SCH (10:03)
[2023-04-17] MEDS: FOLIC ACID 1MG TAB PO SCH (10:03)
[2023-04-17] MEDS: ENOXAPARIN 40MG/0.4ML SYRINGE (J1650 PER 10MG) SC SCH (10:04)
[2023-04-17 11:46] LABS: HEPATITIS B CORE ANTIBODY IGM NEGATIVE (NEGATIVE)
[2023-04-17 11:54] LABS: HEPATITIS C VIRUS ABY INDEX 1.22 INDEX (<0.8)
[2023-04-17 12:01] VITALS: BP 128/72
[2023-04-17 14:00] VITALS: BP 136/90; TEMP 98.8; O2SAT 95
[2023-04-17] MEDS ORDERED: METOPROLOL TART 12.5 MG PER 1/2 TAB PO ONE (15:00)
[2023-04-17 18:31] LABS: MAGNESIUM LEVEL 1.7 MG/DL (1.8-2.4)
[2023-04-17 18:45] VITALS: BP_SYST 130; BP_SYST 138; BP_SYST 150; BP_DIAS 50; BP_DIAS 68; BP_DIAS 78
[2023-04-17] MEDS: QUEtiapine FUMARATE 25 MG TAB PO SCH (20:08)
[2023-04-17] MEDS ORDERED: METOPROLOL TART 12.5 MG PER 1/2 TAB PO SCH (21:00)
[2023-04-17 21:50] VITALS: BP 128/88; TEMP 98.4; O2SAT 95
[2023-04-17] MEDS ORDERED: MAG SULF 1GM/100ML (MAG RUN) 1 GM in IV 1 EA IV ONE (22:40)
[2023-04-17] MEDS: METOPROLOL TART 12.5 MG PER 1/2 TAB PO SCH (23:06)
[2023-04-18] MEDS ORDERED: ACETAMINOPHEN TAB 650MG DOSE (2X325MG) PO PRN (04:00)
[2023-04-18] MEDS: LEVOTHYROXINE 25MCG TABLET (0.025MG) PO SCH (05:59)
[2023-04-18] MEDS: METOPROLOL TART 12.5 MG PER 1/2 TAB PO SCH (05:59)
[2023-04-18 06:00] VITALS: BP 122/84; TEMP 98.1; O2SAT 94
[2023-04-18 06:27] LABS: BASO % 0.3 % (0.0-1.0); EOS # 0.1 10^3/uL (0.0-0.5); EOS % 1.5 % (0.0-3.0); HEMATOCRIT 34.6 % (42.0-52.0); HEMOGLOBIN 11.4 g/dl (13.5-17.5); LYMPH # 1.3 10^3/uL (1.5-5.0); LYMPH % 22.2 % (24.0-44.0); MEAN CORPUSCULAR HEMOGLOBIN 26.8 pg (27.0-33.0); MEAN CORPUSCULAR HGB CONC 32.9 g/dl (32.0-36.5); MEAN CORPUSCULAR VOLUME 81.2 fl (80.0-96.0); MONO % 17.9 % (2.0-8.0); NEUTROPHILS # 3.3 10^3/uL (1.5-8.5); NEUTROPHILS % 57.2 % (36.0-66.0); PLATELET COUNT, AUTOMATED 243 10^3/uL (150-450); RED BLOOD COUNT 4.26 10^6/uL (4.30-6.10); WHITE BLOOD COUNT 5.8 10^3/uL (4.0-10.0)
[2023-04-18 06:57] LABS: ALBUMIN 2.5 G/DL (3.2-5.2); ALKALINE PHOSPHATASE 107 U/L (46-116); ALT/SGPT 44 U/L (7.0-40); AST/SGOT 35 U/L (<34); BILIRUBIN,TOTAL 0.5 MG/DL (0.3-1.2); BLOOD UREA NITROGEN 13 MG/DL (9-23); CALCIUM LEVEL 8.2 MG/DL (8.3-10.6); CARBON DIOXIDE LEVEL 31 MMOL/L (20-31); CHLORIDE LEVEL 101 MMOL/L (98-107); GLOMERULAR FILTRATION RATE > 60.0 (>49); GLUCOSE, FASTING 102 MG/DL (74-106); MAGNESIUM LEVEL 1.8 MG/DL (1.8-2.4); PHOSPHORUS LEVEL 4.3 MG/DL (2.4-5.1); POTASSIUM SERUM 3.7 MMOL/L (3.5-5.1); SODIUM LEVEL 139 MMOL/L (136-145); TOTAL PROTEIN 5.9 G/DL (5.7-8.2)
[2023-04-18] MEDS: D5W/LR 1,000 ML IV SCH (07:31)
[2023-04-18] MEDS: IPRATROPIUM 0.5MG/ALBUTEROL 2.5MG INH SOL UD 3ML (DUONEB) NEB SCH ×4 (07:47→21:21)
[2023-04-18 08:20] VITALS: BP 140/88; TEMP 98.4; O2SAT 100
[2023-04-18] MEDS ORDERED: METOPROLOL TART 12.5 MG PER 1/2 TAB PO SCH (09:00)
[2023-04-18] MEDS ORDERED: ALPRAZolam 0.25 MG TAB PO SCH (09:00)
[2023-04-18] MEDS ORDERED: CEPACOL LOZENGE PO PRN (09:10)
[2023-04-18] MEDS: THIAMINE 100 MG TAB PO SCH ×2 (09:49→20:41)
[2023-04-18] MEDS: FOLIC ACID 1MG TAB PO SCH (09:49)
[2023-04-18] MEDS: amLODIPine 5 MG TAB PO SCH (09:49)
[2023-04-18] MEDS: MULTIVITAMINS/MINERALS THERAP 1 TAB PO SCH (09:49)
[2023-04-18] MEDS: ENOXAPARIN 40MG/0.4ML SYRINGE (J1650 PER 10MG) SC SCH (09:49)
[2023-04-18] MEDS ORDERED: ALPRAZolam 0.25 MG TAB PO PRN ×2 (11:10)
[2023-04-18 12:00] VITALS: BP 138/80
[2023-04-18 14:20] VITALS: BP 138/88; TEMP 98.2; O2SAT 98
[2023-04-18] MEDS: QUEtiapine FUMARATE 25 MG TAB PO SCH (20:41)
[2023-04-18 20:42] VITALS: BP 136/82
[2023-04-18] MEDS: METOPROLOL TART 25 MG TABLET PO SCH (20:42)
[2023-04-18 21:33] VITALS: BP_SYST 115; BP_SYST 118; BP_DIAS 58; TEMP 99.3; O2SAT 94
[2023-04-19] MEDS: LEVOTHYROXINE 25MCG TABLET (0.025MG) PO SCH (05:09)
[2023-04-19 05:34] VITALS: BP 138/40; TEMP 99.1; O2SAT 98
[2023-04-19 06:05] LABS: BASO % 0.4 % (0.0-1.0); EOS # 0.1 10^3/uL (0.0-0.5); EOS % 1.8 % (0.0-3.0); HEMATOCRIT 34.6 % (42.0-52.0); HEMOGLOBIN 11.8 g/dl (13.5-17.5); LYMPH # 1.5 10^3/uL (1.5-5.0); LYMPH % 25.9 % (24.0-44.0); MEAN CORPUSCULAR HEMOGLOBIN 27.4 pg (27.0-33.0); MEAN CORPUSCULAR HGB CONC 34.1 g/dl (32.0-36.5); MEAN CORPUSCULAR VOLUME 80.3 fl (80.0-96.0); MONO # 0.9 10^3/uL (0.0-0.8); MONO % 15.5 % (2.0-8.0); NEUTROPHILS # 3.1 10^3/uL (1.5-8.5); NEUTROPHILS % 54.8 % (36.0-66.0); PLATELET COUNT, AUTOMATED 304 10^3/uL (150-450); RED BLOOD COUNT 4.31 10^6/uL (4.30-6.10); WHITE BLOOD COUNT 5.6 10^3/uL (4.0-10.0)
[2023-04-19 06:34] LABS: ALBUMIN 2.8 G/DL (3.2-5.2); ALKALINE PHOSPHATASE 106 U/L (46-116); ALT/SGPT 41 U/L (7.0-40); AST/SGOT 23 U/L (<34); BILIRUBIN,TOTAL 0.5 MG/DL (0.3-1.2); BLOOD UREA NITROGEN 18 MG/DL (9-23); CALCIUM LEVEL 8.8 MG/DL (8.3-10.6); CARBON DIOXIDE LEVEL 28 MMOL/L (20-31); CHLORIDE LEVEL 99 MMOL/L (98-107); CREATININE FOR GFR 0.65 MG/DL (0.70-1.30); GLOMERULAR FILTRATION RATE > 60.0 (>49); GLUCOSE, FASTING 93 MG/DL (74-106); SODIUM LEVEL 136 MMOL/L (136-145); TOTAL PROTEIN 6.4 G/DL (5.7-8.2)
[2023-04-19] MEDS: IPRATROPIUM 0.5MG/ALBUTEROL 2.5MG INH SOL UD 3ML (DUONEB) NEB SCH ×2 (07:26→11:15)
[2023-04-19 07:51] LABS: MAGNESIUM LEVEL 1.6 MG/DL (1.8-2.4)
[2023-04-19] MEDS: ENOXAPARIN 40MG/0.4ML SYRINGE (J1650 PER 10MG) SC SCH (08:40)
[2023-04-19] MEDS: amLODIPine 5 MG TAB PO SCH (08:40)
[2023-04-19] MEDS: THIAMINE 100 MG TAB PO SCH (08:40)
[2023-04-19] MEDS: FOLIC ACID 1MG TAB PO SCH (08:40)
[2023-04-19] MEDS: METOPROLOL TART 25 MG TABLET PO SCH (08:40)
[2023-04-19] MEDS: MULTIVITAMINS/MINERALS THERAP 1 TAB PO SCH (08:40)
[2023-04-19] MEDS ORDERED: FERROUS SULFATE 325MG TAB PO SCH (09:00)
[2023-04-19] MEDS ORDERED: FERR1TAB8 PO (12:36)
[2023-04-19] MEDS ORDERED: LEVO25TA5 PO (12:36)
[2023-04-19] MEDS ORDERED: QUET1TAB17 PO (12:36)
[2023-04-19] MEDS ORDERED: ALPR0.25 PO (12:36)
[2023-04-19] MEDS ORDERED: VITMTA PO (12:36)
[2023-04-19] MEDS ORDERED: BENZ1LOZ2 PO (12:36)
[2023-04-19] MEDS ORDERED: AMLO1TAB24 PO (12:36)
[2023-04-19] MEDS ORDERED: METO1TAB87 PO (12:36)
[2023-04-19] MEDS ORDERED: Artificial Tears Op Oint OU (12:36)
[2023-04-19] MEDS ORDERED: ALBU8.5H INH (12:36)
[2023-04-19] MEDS ORDERED: FOLI1TAB11 PO (12:36)
[2023-04-19 14:00] VITALS: BP 120/50; TEMP 98.2; O2SAT 90
== END 2023-04-19 15:11 | DRG 922 ==
LOC: M ED 13:34 → EDBD 13:34 → M ED INP 15:30 → M ICU 16:44 → M MSPAV 04-16 15:25
PROVIDERS: ADMIT Internal Medicine Critical Care Medicine; ATTEND Internal Medicine
PROC: 06HM33Z Insertion of Infusion Device into Right Femoral Vein, Percutaneous Approach (ICD-10-PCS; principal; 2023-04-11)
PROC: 5A1945Z Respiratory Ventilation, 24-96 Consecutive Hours (ICD-10-PCS; 2023-04-11)
PROC: B246ZZZ Ultrasonography of Right and Left Heart (ICD-10-PCS; 2023-04-12)
DX: T71.162A Asphyxiation due to hanging, intentional self-harm, initial encounter (principal); I46.9 Cardiac arrest, cause unspecified; G92.8 Other toxic encephalopathy; J96.90 Respiratory failure, unspecified, unspecified whether with hypoxia or hypercapnia; G93.1 Anoxic brain damage, not elsewhere classified; I24.8 Other forms of acute ischemic heart disease; R44.0 Auditory hallucinations; F10.10 Alcohol abuse, uncomplicated; F32.A Depression, unspecified; J45.909 Unspecified asthma, uncomplicated; E03.9 Hypothyroidism, unspecified; I16.0 Hypertensive urgency; Z66 Do not resuscitate; G47.33 Obstructive sleep apnea (adult) (pediatric); R74.01 Elevation of levels of liver transaminase levels; D64.9 Anemia, unspecified; R13.10 Dysphagia, unspecified; E83.42 Hypomagnesemia; F19.10 Other psychoactive substance abuse, uncomplicated; R29.3 Abnormal posture; I10 Essential (primary) hypertension; E87.6 Hypokalemia; F15.10 Other stimulant abuse, uncomplicated; Z91.199 Patient's noncompliance with other medical treatment and regimen due to unspecified reason; Z96.653 Presence of artificial knee joint, bilateral; Z90.49 Acquired absence of other specified parts of digestive tract; Z87.891 Personal history of nicotine dependence

== ENCOUNTER 2023-04-19 12:12 | Inpatient (IN) | payer MEDICARE ==
[~2023-04-19] VITALS: Ht 177.8 cm; Wt 61.7 kg
[2023-04-19] MEDS ORDERED: IBUPROFEN 400MG TAB PO PRN (12:20)
[2023-04-19] MEDS ORDERED: diphenhydrAMINE 25MG CAP PO PRN (12:20)
[2023-04-19] MEDS ORDERED: MAALOX 30 ML SUSP *UDC PO PRN (12:20)
[2023-04-19] MEDS ORDERED: MOM 30ML SUSPENSION UDC PO PRN (12:20)
[2023-04-19] MEDS ORDERED: ACETAMINOPHEN TAB 650MG DOSE (2X325MG) PO PRN (12:20)
[2023-04-19] MEDS ORDERED: AMLO1TAB24 PO (12:36)
[2023-04-19] MEDS ORDERED: BENZ1LOZ2 PO (12:36)
[2023-04-19] MEDS ORDERED: LEVO25TA5 PO (12:36)
[2023-04-19] MEDS ORDERED: FERR1TAB8 PO (12:36)
[2023-04-19] MEDS ORDERED: METO1TAB87 PO (12:36)
[2023-04-19] MEDS ORDERED: Artificial Tears Op Oint OU (12:36)
[2023-04-19] MEDS ORDERED: ALPR0.25 PO (12:36)
[2023-04-19] MEDS ORDERED: VITMTA PO (12:36)
[2023-04-19] MEDS ORDERED: ALBU8.5H INH (12:36)
[2023-04-19] MEDS ORDERED: FOLI1TAB11 PO (12:36)
[2023-04-19] MEDS ORDERED: QUET1TAB17 PO (12:36)
[2023-04-19 16:11] VITALS: BP 132/89; TEMP 97.4; O2SAT 100
[2023-04-19] MEDS: QUEtiapine FUMARATE 25 MG TAB PO SCH (20:10)
[2023-04-19] MEDS: METOPROLOL TART 25 MG TABLET PO SCH (20:10)
[2023-04-20 05:42] VITALS: BP 128/87; TEMP 98.5; O2SAT 94
[2023-04-20] MEDS: amLODIPine 5 MG TAB PO SCH (08:39)
[2023-04-20] MEDS: METOPROLOL TART 25 MG TABLET PO SCH ×2 (08:40→20:35)
[2023-04-20 09:12] VITALS: BP 129/86; TEMP 98.5; O2SAT 94
[2023-04-20 17:35] VITALS: BP 141/86; TEMP 96.3; O2SAT 97
[2023-04-20] MEDS: traZODone 50 MG TAB PO PRN (20:34)
[2023-04-20] MEDS: OLANZapine 2.5MG TABLET PO SCH (20:35)
[2023-04-20] MEDS: QUEtiapine FUMARATE 25 MG TAB PO SCH (20:35)
[2023-04-21] MEDS: LEVOTHYROXINE 25MCG TABLET (0.025MG) PO SCH (06:00)
[2023-04-21 06:26] VITALS: BP 122/87; TEMP 97; O2SAT 97
[2023-04-21 08:12] VITALS: BP 135/76
[2023-04-21] MEDS: METOPROLOL TART 25 MG TABLET PO SCH ×2 (08:15→20:09)
[2023-04-21] MEDS: amLODIPine 5 MG TAB PO SCH (08:15)
[2023-04-21 18:00] VITALS: BP 114/61; TEMP 96.3; O2SAT 98
[2023-04-21] MEDS: QUEtiapine FUMARATE 25 MG TAB PO SCH (20:09)
[2023-04-21] MEDS: OLANZapine 2.5MG TABLET PO SCH (20:09)
[2023-04-21] MEDS: traZODone 50 MG TAB PO PRN (20:09)
[2023-04-22] MEDS: LEVOTHYROXINE 25MCG TABLET (0.025MG) PO SCH (05:30)
[2023-04-22 05:39] VITALS: BP 117/68; TEMP 98.6; O2SAT 95
[2023-04-22] MEDS: MULTIVITAMINS/MINERALS THERAP 1 TAB PO SCH (09:54)
[2023-04-22] MEDS: FOLIC ACID 1MG TAB PO SCH (09:55)
[2023-04-22] MEDS: METOPROLOL TART 25 MG TABLET PO SCH ×2 (09:55→20:15)
[2023-04-22] MEDS: THIAMINE 100 MG TAB PO SCH (09:55)
[2023-04-22] MEDS: amLODIPine 5 MG TAB PO SCH (09:56)
[2023-04-22 17:30] VITALS: BP 104/69; TEMP 98.4; O2SAT 99
[2023-04-22] MEDS: OLANZapine 2.5MG TABLET PO SCH (20:15)
[2023-04-22] MEDS: QUEtiapine FUMARATE 25 MG TAB PO SCH (20:15)
[2023-04-22] MEDS: traZODone 50 MG TAB PO PRN (20:15)
[2023-04-23] MEDS: LEVOTHYROXINE 25MCG TABLET (0.025MG) PO SCH (05:59)
[2023-04-23 06:29] VITALS: BP 122/90; TEMP 99.1; O2SAT 96
[2023-04-23] MEDS: FOLIC ACID 1MG TAB PO SCH (09:35)
[2023-04-23] MEDS: MULTIVITAMINS/MINERALS THERAP 1 TAB PO SCH (09:36)
[2023-04-23] MEDS: METOPROLOL TART 25 MG TABLET PO SCH ×2 (09:36→21:02)
[2023-04-23] MEDS: amLODIPine 5 MG TAB PO SCH (09:36)
[2023-04-23] MEDS: THIAMINE 100 MG TAB PO SCH (09:36)
[2023-04-23] MEDS ORDERED: E-Z-PAQUE 96% w/w SUSP 176GM BTL As Ordered ONE (10:50)
[2023-04-23] MEDS ORDERED: VARIBAR PUDDING 40% w/v 230ML TUBE As Ordered ONE (10:50)
[2023-04-23] MEDS ORDERED: VARIBAR NECTAR 40% w/v 240ML SUSP BTL As Ordered ONE (10:50)
[2023-04-23] MEDS ORDERED: BARIUM SULFATE 700 MG TABLET (E-Z-DISK) As Ordered ONE (10:50)
[2023-04-23 16:06] VITALS: BP 121/82; TEMP 98.5; O2SAT 98
[2023-04-23] MEDS: QUEtiapine FUMARATE 25 MG TAB PO SCH (21:02)
[2023-04-23] MEDS: OLANZapine 2.5MG TABLET PO SCH (21:02)
[2023-04-23] MEDS: traZODone 50 MG TAB PO PRN (21:03)
[2023-04-24] MEDS: LEVOTHYROXINE 25MCG TABLET (0.025MG) PO SCH (06:01)
[2023-04-24 06:29] VITALS: BP 133/72; TEMP 98.8; O2SAT 97
[2023-04-24] MEDS: FOLIC ACID 1MG TAB PO SCH (09:17)
[2023-04-24 09:18] VITALS: BP 120/76
[2023-04-24] MEDS: THIAMINE 100 MG TAB PO SCH (09:18)
[2023-04-24] MEDS: METOPROLOL TART 25 MG TABLET PO SCH (09:18)
[2023-04-24] MEDS: amLODIPine 5 MG TAB PO SCH (09:18)
[2023-04-24] MEDS: MULTIVITAMINS/MINERALS THERAP 1 TAB PO SCH (09:18)
[2023-04-24] MEDS ORDERED: QUET1TAB17 PO (10:02)
[2023-04-24] MEDS ORDERED: OLAN2.5T25 PO (10:02)
[2023-04-24] MEDS ORDERED: TRAZ-252 PO (10:02)
== END 2023-04-24 12:20 | disposition home or self-care (01) | DRG 897 ==
LOC: M PSY 15:13
PROVIDERS: ADMIT Student in an Organized Health Care Education/Training Program; ATTEND Student in an Organized Health Care Education/Training Program
DX: F15.159 Other stimulant abuse with stimulant-induced psychotic disorder, unspecified (principal); F12.10 Cannabis abuse, uncomplicated; G47.33 Obstructive sleep apnea (adult) (pediatric); E03.9 Hypothyroidism, unspecified; B19.20 Unspecified viral hepatitis C without hepatic coma; J45.909 Unspecified asthma, uncomplicated; D64.9 Anemia, unspecified; F10.10 Alcohol abuse, uncomplicated; Z91.51 Personal history of suicidal behavior; Z86.74 Personal history of sudden cardiac arrest; Z79.890 Hormone replacement therapy; Z79.899 Other long term (current) drug therapy